=== PATIENT | male | born 1950 | race Caucasian/White ===

== ENCOUNTER → 2016-07-01 | Outpatient (CLI) | payer BC ==
[~2016-07-01] MED LIST: IOHEXOL 300 MG/ML 100ml INJECTION ONE; NORMAL SALINE 100 ML ONE; SALINE FLUSH 10ml SYRINGE ONE
[2016-07-01 07:43] LABS: BASOPHILS % (AUTO) 0.4 % (0-2); EOSINOPHILS # (AUTO) 0.4 T/MM3 (0-0.5); EOSINOPHILS % (AUTO) 3.9 % (0-4); HCT - HEMATOCRIT 38.1 % (41-53); HGB - HEMOGLOBIN 12.9 GM/DL (13.5-17.5); IMMATURE GRANULOCYTE # (AUTO) 0.01 T/MM3 (0.00-0.03); IMMATURE GRANULOCYTE % (AUTO) 0.1 % (0.0-0.5); LYMPHOCYTES # (AUTO) 2.1 T/MM3 (1-4.8); LYMPHOCYTES % (AUTO) 23.9 % (23-45); MEAN CORPUSCULAR HGB 28.4 UUG (26-34); MEAN CORPUSCULAR HGB CONC(MCHC 33.9 GM/DL (31-37); MEAN CORPUSCULAR VOLUME 83.9 UM3 (80-100); MEAN PLATELET VOLUME 9.5 UM3 (9.4-12.4); MONOCYTES # (AUTO) 0.5 T/MM3 (0-0.8); MONOCYTES % (AUTO) 5.9 % (0-9.0); NEUTROPHILS #(AUTO)-ABSOLUTE 5.9 T/MM3 (1.8-7.7); NEUTROPHILS % (AUTO) 65.8 % (33-66); RED BLOOD COUNT 4.54 M/MM3 (4.50-5.90); WBC - WHITE BLOOD COUNT 8.9 T/MM3 (4.5-11.0)
[2016-07-01 08:26] LABS: ALBUMIN 4.2 G/DL (3.5-5.0); ALBUMIN/GLOBULIN RATIO 1.6 RATIO (1.1-2.2); ALKALINE PHOSPHATASE 79 U/L (38-126); ALT (SGPT) 26 U/L (21-72); ANION GAP 9 MEQ/L (5-15); AST (SGOT) 19 U/L (17-59); BUN/CREATININE RATIO 16 RATIO (6-26); CALCIUM 9.4 MG/DL (8.4-10.2); CHLORIDE 99 MEQ/L (98-107); CO2 - CARBON DIOXIDE 29 MEQ/L (22-30); CREATININE 1.1 MG/DL (0.8-1.5); GLOMERULAR FILTRATION RATE 67; GLUCOSE 299 MG/DL (75-110); POTASSIUM 4.1 MEQ/L (3.6-5); SODIUM 137 MEQ/L (134-144); TOTAL PROTEIN 6.9 G/DL (6.3-8.2)
--- NOTE | 2016-07-01 09:20 | DI ---
EXAM: CT abdomen and pelvis with contrast. LOCATION OF DICTATION: [facility] HISTORY: ITS.REASON: C61 PROSTATE CA COMPARISON: Compared to the CT abdomen pelvis dated October 20, 2014. TECHNIQUE: CT images were obtained of the abdomen and pelvis utilizing 100 mL of Omnipaque 240. Coronal and sagittal reformations were utilized. Automated Exposure Control and Iterative Reconstruction dose reducing techniques were utilized. FINDINGS: CT ABDOMEN LUNG BASES: Unremarkable LIVER: Stable 1 cm cysts noted within the peripheral aspect of the liver. SPLEEN: Unremarkable. GALLBLADDER: Gallbladder is surgically absent. PANCREAS: Unremarkable. ADRENAL GLANDS: Unremarkable. KIDNEYS: Unremarkable. AORTA: There is mild calcific atherosclerotic disease of the abdominal aorta and iliac arteries. LYMPH NODES: Unremarkable. STOMACH BOWEL LOOPS: Small hiatal hernia is noted. PERITONEAL CAVITY: There is no abdominal or pelvic inflammatory mass or ascites. CT PELVIS URINARY BLADDER: Unremarkable. PROSTATE: The prostate is not significantly enlarged. OSSEOUS STRUCTURES: There is moderate osteoarthrosis of the hip joints and mild to moderate spondylosis of the thoracolumbar spine. Bilateral pars defects are demonstrated at the L3 level with grade 2 anterolisthesis of L3 on L4. There is significant neuroforaminal stenosis at the L3-4 level suggested. IMPRESSION: 1. No evidence for visceral or carlee metastases within the abdomen or pelvis. 2. Bilateral pars defects at the L3 level with grade 2 anterolisthesis of L3 on L4 and associated bilateral neuroforaminal stenosis at this level. 3. Small hiatal hernia. 4. Gallbladder is surgically absent. .
--- NOTE | 2016-07-01 17:49 | DI ---
EXAM: NM BONE SCAN, WHOLE BODY LOCATION OF DICTATION: [facility] HISTORY: ITS.REASON: C61 PROSTATE CA COMPARISON: No prior studies available for comparison. TECHNIQUE: mCi of Tc-99m MDP was administered intravenously. Anterior and posterior planar whole-body and spot images were obtained. FINDINGS: There is moderate degree of radiotracer uptake overlying the sternum similar to the prior study. Stable radiotracer uptake in the mid thoracic spine which again is likely degenerative and unchanged. Degenerative uptake overlying the bilateral shoulders and lower cervical spine. Degenerative uptake at the lower lumbar spine is also stable. There is no abnormal radiotracer uptake to suggest bony metastasis. IMPRESSION: No evidence of metastatic disease to the skeleton. .
== END ==
LOC: IMA 07:25
PROVIDERS: ATTEND Radiology Radiation Oncology
DX: C61 Malignant neoplasm of prostate (principal); K44.9 Diaphragmatic hernia without obstruction or gangrene; M43.16 Spondylolisthesis, lumbar region; Z90.49 Acquired absence of other specified parts of digestive tract
CPT/HCPCS: 36415; 74177; 78306; 80053; 85025; A9503; J7050; Q9967